=== PATIENT | male | born 1990 ===

== ENCOUNTER 2017-11-06 01:09 | Emergency (ER) | payer SELFPAY ==
[2017-11-06 01:24] VITALS: BP 100/76
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
[2017-11-06] MEDS ORDERED: AUGMENTIN 875 MG PO ONE (02:19)
== END 2017-11-06 02:33 | disposition home or self-care (01) ==
LOC: ED 01:09
DX: S60.571A Other superficial bite of hand of right hand, initial encounter (principal); W50.3XXA Accidental bite by another person, initial encounter; Y93.89 Activity, other specified; Y99.0 Civilian activity done for income or pay; Y92.89 Other specified places as the place of occurrence of the external cause
CPT/HCPCS: 99282